=== PATIENT | male | born 1965 | race African-American/Black ===

== ENCOUNTER → 2017-01-07 | Outpatient (CLI) | payer OTHER, MEDICAID ==
[2016-04-17 13:33] VITALS: BP 172/80
--- NOTE | 2017-01-08 09:24 | MRI ---
MRI right elbow without contrast Indication: Lateral elbow pain after lifting weights, reported sticking paper clip and elbow at age 16. Technique: Multiplanar, multi sequence imaging right elbow without IV contrast administration. Findings: There is severe artifact within the elbow secondary to reported paper clip insertion into the right elbow. Limited visualization of the right elbow demonstrates mild edema within the origin of the common extensor tendons on coronal image 20 adjacent the lateral humeral epicondyle. The lissett ining common extensor tendons are otherwise normal. The radial collateral and lateral ulnar collater al ligaments are intact . There is no abnormal signal within the common flexor tendons or ulnar aleksandr ateral ligament. Bone marrow signal is preserved throughout the elbow . Radio capitellar and ulnar h umeral joint spaces and articular cartilage are grossly intact . No fat pad displacement or signific ant joint effusion. Limited visualization of the brachialis and biceps tendon demonstrates no abnormal signal. The colton ps tendon is intact. There is no abnormal signal identified within the ulnar nerve. Impression: 1.Low-grade strain of the common extensor tendons at their humeral epicondyle origin. No reactive isidoro ne marrow edema within the humeral epicondyle or evidence of lateral ulnar collateral or radial aleksandr ateral ligamentous injury. 2.The remaining elbow is otherwise normal given limitations of metallic artifact as described above. Reported By:
== END ==
LOC: RAD 11:09
PROVIDERS: ATTEND Specialist
DX: M77.11 Lateral epicondylitis, right elbow (principal)
CPT/HCPCS: 73221

== ENCOUNTER → 2017-02-05 | Outpatient (CLI) | payer OTHER, MEDICAID ==
[2016-04-17 13:33] VITALS: BP 172/80
[2017-02-05 12:17] LABS: BASOPHILS # (AUTO) 0.1 X10^3/uL (0.0-0.1); BASOPHILS % (AUTO) 1.5 % (0.2-1.0); EOSINOPHILS # (AUTO) 0.4 x10^3/uL (0.0-0.2); EOSINOPHILS % (AUTO) 5.9 % (0.9-2.9); LYMPHOCYTES % (AUTO) 15.5 % (21.0-51.0); MEAN CORPUSCULAR HEMOGLOBIN 30.3 pg (27.0-34.0); MEAN CORPUSCULAR HGB CONC 34.1 g/dL (33.0-35.0); MEAN CORPUSCULAR VOLUME 88.9 fL (80.0-100.0); MEAN PLATELET VOLUME 7.1 fL (7.4-11.0); MONOCYTES # (AUTO) 0.7 x10^3/uL (0.3-0.8); MONOCYTES % (AUTO) 11.4 % (0.0-13.0); NEUTROPHILS # (AUTO) 4.1 x10^3/uL (2.2-4.8); NEUTROPHILS % (AUTO) 65.7 % (42.0-75.0); PLATELET COUNT 228 X10^3/uL (150.0-450.0); RED BLOOD COUNT 4.27 X10^6/uL (4.7-6.0); RED CELL DISTRIBUTION WIDTH 13.6 % (11.6-16.5); WHITE BLOOD COUNT 6.2 X10^3/uL (3.6-10.0)
[2017-02-05 12:18] LABS: BILIRUBIN,URINE NEGATIVE (NEGATIVE); BLOOD/HEMOGLOBIN,URINE 2+ (NEGATIVE); GLUCOSE, URINE NEGATIVE (NEGATIVE); KETONES,URINE NEGATIVE (NEGATIVE); LEUKOCYTE ESTERASE ,URINE NEGATIVE (NEGATIVE); NITRITES,URINE NEGATIVE (NEGATIVE); PROTEIN,URINE NEGATIVE (NEGATIVE); UROBILINOGEN,URINE 1+ (NORMAL)
[2017-02-05 12:25] LABS: APPEARANCE,URINE CLEAR (CLEAR); BACTERIA,URINE TRACE /HPF (NEGATIVE); COLOR,URINE YELLOW (YELLOW); MUCUS,URINE FEW /HPF (NEGATIVE); SQUAMOUS EPITHELIAL CELL,UR RARE /HPF (NEGATIVE)
[2017-02-05 12:26] LABS: ALANINE AMINOTRANSFERASE 36 Units/L (12-78); ALBUMIN 3.7 g/dL (3.4-5.0); ALKALINE PHOSPHATASE 115 Units/L (46-116); ASPARTATE AMINO TRANSFERASE 26 Units/L (15-37); BLOOD UREA NITROGEN 14 mg/dL (7-18); CHLORIDE 105 mmol/L (98-107); CREATININE 1.43 mg/dL (0.70-1.30); GLUCOSE 91 mg/dL (65-99); SODIUM 142 mmol/L (136-145); TOTAL PROTEIN 7.9 g/dL (6.4-8.2); eGFR BLACK RACES > 60 (>60); eGFR NON BLACK RACES 56 (>60)
--- NOTE | 2017-02-05 12:40 | RAD ---
Chest, two views Indication: Preoperative evaluation for elbow surgery Comparison: 04/09/2016 Findings: Cardiac silhouette is unremarkable. The lungs are clear, without focal infiltrates, pleura l effusion, or pneumothorax. The bony thorax is unremarkable. Impression: No acute cardiopulmonary disease. Reported By:
== END ==
LOC: LAB 11:36
PROVIDERS: ATTEND Specialist
DX: Z01.818 Encounter for other preprocedural examination (principal); Z01.810 Encounter for preprocedural cardiovascular examination; Z01.811 Encounter for preprocedural respiratory examination; Z79.899 Other long term (current) drug therapy; Z11.8 Encounter for screening for other infectious and parasitic diseases; B95.7 Other staphylococcus as the cause of diseases classified elsewhere; Z87.39 Personal history of other diseases of the musculoskeletal system and connective tissue
CPT/HCPCS: 36415; 71020; 80053; 81001; 85025; 87641; 93005; 93010

== ENCOUNTER → 2017-02-10 | Day surgery (SDC) | payer OTHER, MEDICAID ==
[~2017-02-10] MED LIST: D5 LR 1000 ML 1,000 ML IV ONE; DIPRIVAN VIAL ONE; FENTANYL INJ 100 mcg ONE; KENALOG INJ 40 MG ONE; NAROPIN 0.75% ONE; NORCO 5/325 MG TAB ONE; NS IRRIGATION 1000 ML 1,000 ML with BACITRACIN VIAL 50,000 UNT IR ONE; VERSED ONE; XYLOCAINE 2 % (PLAIN) ONE; XYLOCAINE 2% and EPINEPHRINE 1:100,000 ONE
[2017-02-10] MEDS: MARCAINE 0.25% WITH EPI IJ ONE ×2 (10:07→12:36)
[2017-02-10] MEDS: ANCEF VIAL 1 GM ONE ×2 (10:07→12:00)
[2017-02-10] MEDS: NS 50 ML IV + SPIKE MINIBAG* 50 ML IV ONE ×2 (10:08→12:00)
[2017-02-10] MEDS: DILAUDID INJ ONE ×2 (13:08→13:16)
[2017-02-10 14:43] VITALS: BP 158/89
== END | disposition home or self-care (01) ==
LOC: SURG1 08:58
PROVIDERS: ATTEND Specialist
PROC: 0LN30ZZ Release Right Upper Arm Tendon, Open Approach (ICD-10-PCS; principal; 2017-02-10 08:30)
DX: M77.11 Lateral epicondylitis, right elbow (principal)
CPT/HCPCS: 64415; A4222; S0020; J0690; J1170; J2001; J2250; J3010; J3301; J3490; J7120